=== PATIENT | female | born 1960 | race Caucasian/White ===

== ENCOUNTER 2024-01-11 11:39 | Inpatient (IN) | payer MEDICARE, OTHER ==
[~2024-01-11] VITALS: Ht 167.6 cm; Wt 67.1 kg
[2024-01-11] MEDS ORDERED: OLANZAPINE 10 MG VIAL IM ONE ×3 (12:28→13:21)
[2024-01-11 12:34] LABS: APPEARANCE,URINE CLEAR (CLEAR); BILIRUBIN,URINE NEGATIVE (NEGATIVE); BLOOD, URINE NEGATIVE Ery/uL (NEGATIVE); COLOR,URINE YELLOW (YELLOW); KETONES,URINE NEGATIVE (NEGATIVE); LEUKOCYTE ESTERASE ,URINE NEGATIVE (NEGATIVE); NITRITE, URINE NEGATIVE (NEGATIVE); PH,URINE 6.5 (5.0-8.0); PROTEIN,URINE NEGATIVE (NEGATIVE); UGLUCOSE NEGATIVE (NEGATIVE); UROBILINOGEN,URINE 0.2 EU/dL (0.2)
[2024-01-11 12:38] LABS: BASOPHILS % (AUTO) 0.8 % (0.0-2.0); EOSINOPHILS # (AUTO) 0.1 K/uL (0.0-0.7); HEMATOCRIT 42 % (33-45); LYMPHOCYTES # (AUTO) 2.6 K/uL (0.8-4.8); LYMPHOCYTES % (AUTO) 41.3 % (20.0-44.0); MEAN CORPUSCULAR HEMOGLOBIN 32 PG (26.0-33.0); MEAN CORPUSCULAR HGB CONC 34 g/dl (31.0-36.0); MEAN CORPUSCULAR VOLUME 94 fL (82-100); MONOCYTES # (AUTO) 0.4 K/uL (0.1-1.30); MONOCYTES % (AUTO) 6.3 % (2.0-12.0); NEUTROPHILS # (AUTO) 3.1 K/uL (1.8-8.9); NEUTROPHILS % (AUTO) 50.6 % (43.0-81.0); PLATELET COUNT (AUTO) 252 K/uL (150-450); RED BLOOD CELL COUNT(AUTO) 4.41 MIL/uL (4.0-5.2); RED CELL DISTRIBUTION WIDTH 13.3 % (11.5-15.0); WHITE BLOOD COUNT (AUTO) 6.2 K/uL (4.3-11.0)
[2024-01-11 12:39] LABS: ALANINE AMINOTRANSFERASE 14 U/L (12-78); ALBUMIN 3.2 g/dL (3.4-5.0); ALCOHOL, BLOOD < 3 mg/dL (0-10); ALKALINE PHOSPHATASE 67 U/L (46-116); ASPARTATE AMINOTRANSFERASE 15 U/L (15-37); BILIRUBIN,DIRECT 0.1 mg/dL (0.0-0.2); BILIRUBIN,TOTAL 0.5 mg/dL (0.2-1.0); CALCIUM, SERUM 9.7 mg/dL (8.5-10.1); CARBON DIOXIDE 30 mmol/L (21-32); CHLORIDE 107 mmol/L (98-107); CREATININE 0.9 mg/dL (0.6-1.3); GLUCOSE 94 mg/dL (74-106); POTASSIUM 3.9 mmol/L (3.5-5.1); SODIUM SERUM 141 mmol/L (136-145); UREA NITROGEN, BLOOD 14 mg/dL (7-18)
[2024-01-11 12:40] LABS: ACETAMINOPHEN <10 ug/ml (10-30); SALICYLATE < 0.2 mg/dL (2.8-20.0)
[2024-01-11] MEDS: OLANZAPINE 10 MG VIAL IM ONE ×2 (12:42→13:25)
[2024-01-11 12:59] LABS: AMPHETAMINE, URINE NEGATIVE (NEGATIVE); BARBITURATE, URINE NEGATIVE (NEGATIVE); BENZODIAZEPINE, URINE NEGATIVE (NEGATIVE); CANNABINOID, URINE NEGATIVE (NEGATIVE); COCCAINE, URINE NEGATIVE (NEGATIVE); OPIATE, URINE NEGATIVE (NEGATIVE); PHENCYCLIDINE SCREEN,URINE NEGATIVE (NEGATIVE)
[2024-01-11] MEDS ORDERED: QUET25TA PO ×2 (14:16)
[2024-01-11] MEDS ORDERED: GABA-532 PO (14:16)
[2024-01-11] MEDS ORDERED: NA P133E RC (14:16)
[2024-01-11] MEDS ORDERED: ACET325T53 PO (14:16)
[2024-01-11] MEDS ORDERED: DIVA125C2 PO (14:16)
[2024-01-11] MEDS ORDERED: MAGN400O6 PO (14:16)
[2024-01-11] MEDS ORDERED: TRAZ-257 PO (14:16)
[2024-01-11] MEDS ORDERED: POLY17PO4 PO (14:16)
[2024-01-11] MEDS ORDERED: MAGNESIUM HYDROXIDE 30 ML UDC PO PRN (18:30)
[2024-01-11] MEDS ORDERED: MAG HYDROX/AL HYDROX/SIMETH 30 ML UDC PO PRN (18:30)
[2024-01-11] MEDS: BLOOD SUGAR DIAGNOSTIC 1 EACH STRIP IN ONE (19:47)
[2024-01-11 20:59] VITALS: BP 150/74; TEMP 98.3; O2SAT 98
[2024-01-11 23:55] VITALS: BP 142/78; TEMP 98; O2SAT 98
[2024-01-12] MEDS: ZOLPIDEM TARTRATE 5 MG TABLET PO PRN (00:23)
[2024-01-12] MEDS ORDERED: POLYETHYLENE GLYCOL 3350 17 GM POWD.PACK PO PRN (03:30)
[2024-01-12] MEDS: LORAZEPAM 1 MG TABLET PO PRN (04:24)
[2024-01-12 08:00] VITALS: BP 143/77; TEMP 98.7; O2SAT 97
[2024-01-12 08:27] LABS: ALBUMIN 3.1 g/dL (3.4-5.0); BILIRUBIN,TOTAL 0.5 mg/dL (0.2-1.0); CALCIUM, SERUM 8.8 mg/dL (8.5-10.1); CREATININE 0.8 mg/dL (0.6-1.3); POTASSIUM 3.8 mmol/L (3.5-5.1); TOTAL PROTEIN, SERUM 6.6 g/dL (6.4-8.2)
[2024-01-12] MEDS: GABAPENTIN 100 MG CAPSULE PO SCH (08:37)
[2024-01-12 08:59] LABS: CHOLESTEROL 191 mg/dL (<200); HDL CHOLESTEROL 77 mg/dL (40-60); LDL 91 mg/dL (0-99); TRIGLYCERIDES 54 mg/dL (30-150)
[2024-01-12] MEDS: OLANZAPINE ZYDIS 5 MG TAB.RAPDIS SL ONE (09:30)
[2024-01-12] MEDS: OLANZAPINE 10 MG VIAL IM ONE (10:33)
[2024-01-12] MEDS: DIVALPROEX SODIUM 125 MG CAP.SPRINK PO SCH (13:43)
[2024-01-12 16:00] VITALS: BP 115/74; TEMP 97.9; O2SAT 98
[2024-01-12] MEDS: OLANZAPINE 5 MG TABLET PO SCH (16:29)
[2024-01-12 20:51] VITALS: BP 136/84; TEMP 98.2; O2SAT 97
[2024-01-12] MEDS: TRAZODONE 50 MG TABLET PO SCH (21:23)
[2024-01-13 08:00] VITALS: BP 136/90; TEMP 97.9; O2SAT 98
[2024-01-13 16:00] VITALS: BP 137/90; TEMP 98.7; O2SAT 98
[2024-01-13 20:31] VITALS: BP 141/89; TEMP 98.2; O2SAT 97
[2024-01-14 16:00] VITALS: BP 100/62; TEMP 98.6; O2SAT 98
[2024-01-15 08:00] VITALS: BP 114/50; TEMP 97.6; O2SAT 98
[2024-01-15 16:00] VITALS: BP 137/95; TEMP 98.6; O2SAT 98
[2024-01-15 20:00] VITALS: BP 151/83; TEMP 97.8; O2SAT 95
[2024-01-16 08:00] VITALS: BP 111/60; TEMP 98.6; O2SAT 96
[2024-01-16] MEDS: OLANZAPINE 10 MG VIAL IM ONE (10:39)
[2024-01-16 16:05] VITALS: BP 129/83; TEMP 97.9; O2SAT 97
[2024-01-16 21:52] VITALS: BP 143/92; TEMP 97.9; O2SAT 98
[2024-01-16] MEDS: OLANZAPINE 5 MG TABLET PO SCH (22:13)
[2024-01-17 08:00] VITALS: BP 109/65; TEMP 97.8; O2SAT 97
[2024-01-17 16:00] VITALS: BP 100/57; TEMP 98.2; O2SAT 96
[2024-01-17 21:24] VITALS: BP 107/81; TEMP 98.2; O2SAT 95
[2024-01-18 08:00] VITALS: BP 117/57; TEMP 97.9; O2SAT 97
[2024-01-18 16:00] VITALS: BP 106/66; TEMP 97.9; O2SAT 96
[2024-01-18 21:04] VITALS: BP 108/62; TEMP 98.4; O2SAT 97
[2024-01-18] MEDS: MIRTAZAPINE 15 MG TABLET PO SCH (21:21)
[2024-01-19 08:00] VITALS: BP 108/53; TEMP 98.1; O2SAT 97
[2024-01-19 16:00] VITALS: BP 142/80; TEMP 97.8; O2SAT 98
[2024-01-19 20:24] VITALS: BP 159/95; TEMP 98.6; O2SAT 97
[2024-01-19] MEDS: ACETAMINOPHEN 325 MG TABLET PO PRN (21:51)
[2024-01-20 08:00] VITALS: BP 123/57; TEMP 98.7; O2SAT 100
[2024-01-20 16:00] VITALS: BP 138/85; TEMP 98.6; O2SAT 98
[2024-01-20 20:55] VITALS: BP 135/84; TEMP 98.2; O2SAT 97
[2024-01-21 08:00] VITALS: BP 110/73; TEMP 97.6; O2SAT 94
[2024-01-21] MEDS: OLANZAPINE 2.5 MG TABLET PO SCH (08:58)
[2024-01-21 16:00] VITALS: BP 151/97; TEMP 97.6; O2SAT 98
[2024-01-21 20:00] VITALS: BP 117/75; TEMP 98.4; O2SAT 96
[2024-01-22 08:00] VITALS: BP 102/71; TEMP 98.6; O2SAT 94
[2024-01-22 16:00] VITALS: BP 119/70; TEMP 98.6; O2SAT 98
[2024-01-22 20:00] VITALS: BP 108/75; TEMP 98.4; O2SAT 98
[2024-01-23 08:00] VITALS: BP 103/50; TEMP 97.5; O2SAT 94
[2024-01-23 16:00] VITALS: BP 116/50; TEMP 98.2; O2SAT 98
[2024-01-23 21:55] VITALS: BP 104/79; TEMP 98.4; O2SAT 97
[2024-01-24 10:55] VITALS: BP 135/75; TEMP 97.4; O2SAT 98
[2024-01-24 20:00] VITALS: BP 137/94; TEMP 97.8; O2SAT 95
[2024-01-25 20:57] VITALS: BP 122/81; TEMP 98.2; O2SAT 98
[2024-01-25] MEDS: OLANZAPINE 5 MG TABLET PO SCH (21:35)
[2024-01-26 08:00] VITALS: BP 126/69; TEMP 97.7; O2SAT 98
== END 2024-01-26 13:33 | DRG 885 ==
LOC: ER 12:15 → GPS 17:44
PROVIDERS: ADMIT Psychiatry & Neurology Psychiatry; ATTEND Internal Medicine
DX: F29 Unspecified psychosis not due to a substance or known physiological condition (principal); E44.1 Mild protein-calorie malnutrition; F03.918 Unspecified dementia, unspecified severity, with other behavioral disturbance; F03.94 Unspecified dementia, unspecified severity, with anxiety; F03.92 Unspecified dementia, unspecified severity, with psychotic disturbance; F31.9 Bipolar disorder, unspecified; E88.09 Other disorders of plasma-protein metabolism, not elsewhere classified; Z20.822 Contact with and (suspected) exposure to COVID-19; F25.9 Schizoaffective disorder, unspecified; Z79.899 Other long term (current) drug therapy; Z73.6 Limitation of activities due to disability; M62.81 Muscle weakness (generalized); Z68.23 Body mass index [BMI] 23.0-23.9, adult
CPT/HCPCS: 36415; 80048-TC; 80053-TC; 80061-TC; 80076-TC; 80164-TC; 82962-TC; 85025-TC; G0480; J3490